=== PATIENT | male | born 1950 | race Hispanic/Latino ===

== ENCOUNTER 2017-05-20 06:35 | Day surgery (SDC) | payer MEDICARE ==
[2016-04-23 20:25] VITALS: BMI 29.2
[2017-05-20] MEDS ORDERED: Phenylephrine 10 mg/ml Inj ONE (07:26)
[2017-05-20] MEDS ORDERED: Lidocaine 2% Inj (20ml) ONE (07:26)
[2017-05-20] MEDS ORDERED: Midazolam 2 MG/2 ML VIAL ONE ×3 (07:26→08:16)
[2017-05-20] MEDS ORDERED: Nitroglycerin 50mg in D5W 0 MG/0 ML BOTTLE IV ONE (07:27)
[2017-05-20] MEDS ORDERED: Iodixanol 320 MG/ML 200 ML BOTTLE IV ONE (07:27)
[2017-05-20] MEDS ORDERED: Iodixanol 320 MG/ML 100 ML BOTTLE IV ONE ×2 (07:27→08:39)
[2017-05-20] MEDS ORDERED: Iohexol 350mgl/ml 50 ML ONE (07:27)
[2017-05-20 07:30] LABS: BASO # 0.06 K/mm3 (0.0-2.0); BASO % 0.8 % (0.0-3.0); EOS # 0.4 (0.0-0.7); EOS % 5.3 % (1.5-5.0); GRAN # 3.73 (1.4-6.5); GRAN % 49.4 % (50.0-68.0); HEMATOCRIT 40.6 % (42.0-52.0); LYMPH # 2.7 (1.2-3.4); LYMPH % 35.9 % (22.0-35.0); MEAN CELL VOLUME 89.2 fl (80.0-105.0); MEAN CORPUSCULAR HEMOGLOBIN 29.9 pg (25.0-35.0); MEAN CORPUSCULAR HGB CONC 33.5 g/dl (31.0-37.0); MEAN PLATELET VOLUME 9.4 fl (7.0-11.0); MONO # 0.7 (0.1-0.6); MONO % 8.6 % (1.0-6.0); RED CELL DISTRIBUTION WIDTH 13.9 % (11.5-14.5); WHITE BLOOD COUNT 7.6 10^3/ul (4.5-11.0)
[2017-05-20 07:38] VITALS: O2SAT 97
[2017-05-20 07:44] LABS: BLOOD UREA NITROGEN 19 mg/dL (7-21); CALCIUM 9.8 mg/dL (8.4-10.5); CARBON DIOXIDE 24 mmol/L (21-33); CHLORIDE 106 mmol/L (98-107); GFR AFRICAN-AMERICAN > 60; GLUCOSE,RANDOM 95 mg/dL (70-110); POTASSIUM 4.1 mmol/L (3.6-5.0); SODIUM 140 mmol/L (132-148)
[2017-05-20 07:45] LABS: INR 0.98 (0.93-1.08); PARTIAL THROMBOPLASTIN TIME 29.1 Seconds (25.1-36.5)
[2017-05-20] MEDS ORDERED: Sodium Chloride 0.9% 1,000 ML IV SCH (09:15)
[2017-05-20] MEDS: Morphine 2 mg/ml ISec IVP PRN ×2 (11:13→13:54)
[2017-05-20 15:35] VITALS: RESP 18
[2017-05-20 15:40] VITALS: BP 137/65; PULSE 70; TEMP 97.9
--- NOTE | 2017-05-20 16:16 | CARD ---
APPROVED REPORT EKG Measurement Heart [id number] <Conclusion> Sinus bradycardia with 1st degree AV block Left bundle branch block Abnormal ECG
--- NOTE | 2017-05-20 19:43 | PN ---
CARDIOLOGY FOLLOWUP DATE: 05/20/2017 SUBJECTIVE: The patient is doing well post PTCA. The patient is ambulating to the bathroom. PHYSICAL EXAMINATION VITAL SIGNS: Blood pressure is 116/60, the right groin site is stable. LABORATORY DATA: Laboratories were not done yet. EKG is unchanged. IMPRESSION: 1. Status post percutaneous transluminal coronary angioplasty and stent of diagonal vessel of the left anterior descending. 2. Coronary artery disease. 3. Ischemic dilated cardiomyopathy. 4. Hypertension. Given these findings, the patient is stable for discharge. We will observe the patient for an hour with ambulation. The patient can be discharged today. With the snow coming today, the family felt that they might be stuck and not be able to pick the patient up in the morning. I have given an extra careful instructions to the patient to stay in bed for the rest to stay at home. I have told him about the bleeding issues and we need to come back if that occurred. We will discharge today. Murtaza Vanessa MD
--- NOTE | 2017-05-20 20:56 | CARDCATH ---
PROCEDURE DATE: 05/20/2017 CARDIAC CATHETERIZATION AND PTCA HISTORY: The patient is a 66-year-old male with a history of a previous non-STEMI and PTCA who presents with exertional shortness of breath and angina. Stress test was abnormal. Because of this, cardiac catheterization was recommended. PROCEDURE: Left heart catheterization with coronary arteriography and left ventriculogram followed by PTCA and stent of a diagonal vessel off the LAD. Right femoral artery was cannulated with a 6-[place] sheath. There were no complications. I performed moderate sedation, which included the presence of an independent trained observer that assisted in monitoring the patient's level of consciousness and physiologic status. After administration of the sedation agent, my intra service time was 30 minutes. FINDINGS: The findings on catheterization revealed a right dominant circulation. The RCA revealed diffuse atherosclerosis throughout its course. There were two patent stents; one in the distal RCA, one in the PDA. The PDA stent showed a 50% in-stent restenosis. The left main artery revealed intimal irregularities without significant stenoses. The LAD revealed diffuse atherosclerosis throughout its course without critical lesions. Diagonal vessel revealed a long 80% stenosis in its proximal portion. The circumflex artery and obtuse marginal branches revealed diffuse atherosclerosis with a 50% to 60% stenosis in the distal portion. Left ventriculogram was performed in the MEIER projection. In the MEIER projection, the inferoapical region was akinetic. The rest of the myocardium resulted in ejection fraction of approximately 35%. The patient was started on intravenous Angiomax under fluoroscopic guide. The guiding catheter was placed in the ostium of the left main artery. An 0.014 ATW wire was placed in the diagonal vessels through the LAD. A 2.5 x 12 mm drug-eluting stent was placed and deployed at 12 atmospheres of pressure. Repeat coronary arteriography revealed an excellent result with no residual stenosis and PHIL-3 flow. The patient tolerated the procedure well. Angio-Seal was used to close the femoral artery site. In summary, the procedure was successful PTCA and stent of a critically stenosed diagonal vessel off the LAD. Cardiac catheterization reveals an ischemic dilated cardiomyopathy with an EF of approximately 35%. Cardiac catheterization revealed patent stents in the distal RCA with a 50% in-stent restenosis of the PDA stent. Given these findings, the patient will need to remain on aspirin and Plavix and undergo strict cardiac risk reduction program. Murtaza Vanessa MD cc: [facility] # [id number]
--- NOTE | 2017-05-20 21:08 | HP ---
HISTORY OF PRESENT ILLNESS: I was called down by Dr. Murtaza Vanessa, who just finished cardiac catheterization and stent placement on him and he asked me to do a history and physical and take care of him overnight while he is resting. I saw him in his room. He just had a cardiac cath. He is doing well. He is a 66-year-old man with a past medical history of hypertension, high cholesterol, aortic aneurysm, myocardial infarction with stent placement, chronic back pain for years, generalized weakness, comes in has multiple issues with weakness on walking, shortness of breath and has a cardiac stent placed by Dr. Vanessa. SOCIAL HISTORY: He does not drink, does not do drugs. Former smoker. PAST SURGICAL HISTORY: He had a AAA repair, hernia repair, multiple back surgeries. ALLERGIES: NO KNOWN DRUG ALLERGIES. MEDICATIONS: He takes vitamin D, Reglan, aspirin, pravastatin, lisinopril, Lopressor. REVIEW OF SYSTEMS: No acute vision changes or hearing changes. No sore throat. Some chest discomfort, no pain, although shortness of breath. No wheezing, no abdominal pain. No nausea, vomiting, constipation or diarrhea. There is chronic back pain, it can be severe at times. No leg swelling, just weak in the legs. No anxiety. He does have a history of depression. PHYSICAL EXAMINATION: VITAL SIGNS: He has a 97.5 temperature, 81 pulse, 116/60 blood pressure, 18 respiratory rate, 97% O2 sat on room air. GENERAL: He is lying comfortably in bed. He sleeps 5 to 6 hours. He is alert, talking and comfortable at this time. He is smiling and having a good conversation. HEENT: Head is atraumatic, normocephalic. His extraocular muscles are intact. Throat is moist. NECK: Supple. HEART: Regular rate. LUNGS: Decreased breath sounds, but clear to auscultation. No apparent wheezes, rales or rhonchi. ABDOMEN: Soft. Positive bowel sounds. No guarding. No rebound. EXTREMITIES: Have no edema. NEUROLOGIC: He is alert and comfortable. No apparent anxiety. LYMPHATICS: Thyroid is midline. No palpable lymphadenopathy appreciated at this time. SKIN: Apparently, he told me there is nothing wrong with the skin and I do not appreciate anything. LABORATORY DATA: He had a sodium 140, potassium 4.1, BUN 19, creatinine 1, GFR is greater than 60, sugar is 95, calcium is 9.8, INR is 0.98. He has a 7.6 white count, 4.5 RBC, 13.6 hemoglobin, 40.6 hematocrit with 215 platelets. IMPRESSION AND PLAN: History of coronary artery disease, cardiac stent placed by Dr. Vanessa. He has a history of hypertension, high cholesterol, aortic aneurysm with repair and myocardial infarction history and chronic back pain. We will check his labs tomorrow. Keep him resting comfortably 6 hours in bed and if he does well, hopefully tomorrow we can discharge him. Regulo Bourgeois DO
== END 2017-05-20 17:10 | disposition home or self-care (01) ==
LOC: CATH 06:35 → 2RSO 09:21 → CATH 17:10
PROVIDERS: ATTEND Internal Medicine Cardiovascular Disease
DX: I25.10 Atherosclerotic heart disease of native coronary artery without angina pectoris (principal); I10 Essential (primary) hypertension; I42.0 Dilated cardiomyopathy; I25.5 Ischemic cardiomyopathy; I25.2 Old myocardial infarction; G89.29 Other chronic pain; E78.00 Pure hypercholesterolemia, unspecified; Z95.5 Presence of coronary angioplasty implant and graft; M54.9 Dorsalgia, unspecified; Z87.891 Personal history of nicotine dependence
CPT/HCPCS: 36415; 80048; 85025; 85610; 85730; 86850; 86900; 92920; 93005; 93458; 99152; 99153; C1760; C1769 ×2; C1874; C1887 ×2; C2629; C9600; J0583; J1644; J2250; J2270; J3010; J7030; J7040; Q9967 ×2

== ENCOUNTER 2018-06-30 06:41 | Outpatient (CLI) | payer MEDICARE | END 2018-06-30 06:42 | disposition home or self-care (01) | LOC: CARDIO 06:41 ==

== ENCOUNTER 2018-07-19 08:09 | Day surgery (SDC) | payer MEDICARE ==
[2018-06-30 09:09] VITALS: BMI 29.4
[2018-07-19] MEDS ORDERED: Sodium Chloride 0.9% 1,000 ML IV SCH (09:45)
[2018-07-19] MEDS ORDERED: Propofol 10 mg/ml Inj (20 ML) ONE ×2 (09:53→10:24)
[2018-07-19 11:42] VITALS: BP 109/62; PULSE 63; RESP 16; TEMP 98; O2SAT 99
== END 2018-07-19 12:10 | disposition home or self-care (01) ==
LOC: ENDO 08:09
PROVIDERS: ATTEND Specialist
DX: D12.3 Benign neoplasm of transverse colon (principal); K57.30 Diverticulosis of large intestine without perforation or abscess without bleeding; K64.8 Other hemorrhoids; I25.10 Atherosclerotic heart disease of native coronary artery without angina pectoris; I10 Essential (primary) hypertension; Z95.5 Presence of coronary angioplasty implant and graft
CPT/HCPCS: 45385; 88305; J2001; J2704; J7030; J7040